=== PATIENT | female | born 1995 | race Asian ===

== ENCOUNTER 2016-10-21 10:36 | Emergency (ER) | payer SELFPAY ==
[2016-10-21 11:07] LABS: Manual Entry Verification JEA0012; UR Preg Internal Control QC Line Present
--- NOTE | 2016-10-21 11:21 | ED ---
GI/ HPI - HPI Summary HPI Summary: 20F presents with menstrual pain for a day. She states she is having cramping feeling in her pelvis for a couple hours so she called an ambulance because she didn't know what to do. She took a couple advil prior to arrival and her pain is minimal now. She denies any n/v/d/c, dysuria, hematuria, flank pain. She states she has been having a normal amount of bleeding. She is on her period at the normal time every 28 days and it lasts 5 days. She has been changing her pad every 3 hours which is her normal. - History of Current Complaint Chief Complaint: EDAbdPain Time Seen by Provider: 10/21/16 10:40 Stated Complaint: ABD PAIN Pain Intensity: 2 - Allergy/Home Medications Allergies/Adverse Reactions: Allergies Allergy/AdvReac Type Severity Reaction Status Date / Time No Known Allergies Allergy Verified 10/21/16 11:00 PMH/Surg Hx/FS Hx/Imm Hx Endocrine/Hematology History: Denies: Hx Anticoagulant Therapy Cardiovascular History: Denies: Hx Hypertension Infectious Disease History: No Infectious Disease History: Denies: Traveled Outside the [place] in Last 30 Days - Family History Known Family History: Negative: Cardiac Disease - Social History Alcohol Use: None Substance Use Type: Reports: None Smoking Status (MU): Never Smoked Tobacco Review of Systems Negative: Fever Negative: Chest Pain Negative: Shortness Of Breath Positive: Abdominal Pain. Negative: Vomiting, Diarrhea, Nausea All Other Systems Reviewed And Are Negative: Yes Physical Exam Triage Information Reviewed: Yes Vital Signs On Initial Exam: Initial Vitals Temp Pulse Resp BP Pulse Ox 98.4 F 62 16 119/89 100 10/21/16 10:58 10/21/16 10:58 10/21/16 10:58 10/21/16 10:58 10/21/16 10:58 Vital Signs Reviewed: Yes Appearance: Positive: Well-Appearing Skin: Positive: Warm, Dry Head/Face: Positive: Normal Head/Face Inspection Eyes: Positive: Normal, Conjunctiva Clear ENT: Positive: Normal ENT inspection, Pharynx normal, TMs normal Respiratory/Lung Sounds: Positive: Clear to Auscultation, Breath Sounds Present Cardiovascular: Positive: Normal, RRR Abdomen Description: Positive: Nontender, Soft Bowel Sounds: Positive: Present Diagnostics - Vital Signs Vital Signs Temp Pulse Resp BP Pulse Ox 10/21/16 10:58 98.4 F 62 16 119/89 100 - Laboratory Lab Results: Lab Results 10/21/16 Range/Units 10:53 Urine Test Negative (Negative) Lab Statement: Any lab studies that have been ordered have been reviewed, and results considered in the medical decision making process. GIGU Course/Dx - Course Course Of Treatment: 20F presents with menstrual pain for a day. She states she is having cramping feeling in her pelvis for a couple hours so she called an ambulance because she didn't know what to do. She took a couple advil prior to arrival and her pain is minimal now. She denies any other symptoms. She is having a normal amount of bleeding. on exam abdomen nontender. urine normal. told to continue advil. patient understands and agrees with plan - Diagnoses Differential Diagnoses - Female: Urinary Tract Infection, Vaginitis, Other - menstrual cramps Provider Diagnoses: Menstrual cramps Discharge - Discharge Plan Condition: Good Disposition: HOME Patient Education Materials: Dysmenorrhea (ED) Referrals: Non Staff,Doctor [Primary Care Provider] - Additional Instructions: Take ibuprofen 600mg every [address] heat on area Go for a walk Follow up with Dominique if want to be placed on control if do not want to get intense periods anymore Return to ED if develop any new or worsening symptoms
[2016-10-21 11:35] VITALS: BP 122/56
== END 2016-10-21 11:36 | disposition home or self-care (01) ==
LOC: ED 10:36
DX: N94.6 Dysmenorrhea, unspecified (principal)
CPT/HCPCS: 81025; 99282

== ENCOUNTER 2016-12-02 11:18 | Emergency (ER) | payer OTHER ==
[2016-12-02] MEDS ORDERED: diPHENhydraMINE PO* 25 MG PO ONE (12:15)
[2016-12-02 13:39] LABS: Albumin 4.3 g/dL (3.2-5.2); BUN/Creatinine Ratio 11.3 (8-20); Calcium 9.7 mg/dL (8.6-10.3); EGFR African American 157.8 (>60); EGFR Non-African American 122.7 (>60); Globulin 3.3 g/dL (2-4); Total Bilirubin 0.6 mg/dL (0.2-1.0); Total Protein 7.6 g/dL (6.4-8.9)
[2016-12-02 13:46] LABS: Potassium 3.5 mmol/L (3.5-5.0)
[2016-12-02 13:50] LABS: Hematocrit 44 % (35-47); Hemoglobin 14.6 g/dl (12.0-16.0); Mean Corpuscular HGB Conc 33 g/dl (31-36); Mean Corpuscular Hemoglobin 30 pg (27-31); Mean Corpuscular Volume 92 fL (80-97); Mean Platelet Volume 7 um3 (7.4-10.4); Red Blood Count 4.81 10^6/ul (4.0-5.4); Red Cell Distribution Width 13 % (10.5-15); White Blood Count 6.1 10^3/ul (3.5-10.8)
--- NOTE | 2016-12-02 14:06 | ED ---
Skin Complaint - HPI Summary HPI Summary: 20F presents with left cellulitis ankle for two weeks. She states that developed the rash and face yesterday and is itchy. She denies any chest pain, SOB, or difficulty swallowing. She denies any abdominal pain, n/v. She denies any fevers. She states that she was on keflex and bactrim and it seemed to be getting better slowly. She was seen at [facility] and was switched to clindamycin and took two doses when she developed the facial rash. She states she took Benadryl last night and had some improvement. on further discussion with dr cooley who saw at [facility] had rash on face before started clindamycin and that was why they switched her to clindamycin. - History of Current Complaint Chief Complaint: EDExtremityLower Time Seen by Provider: 12/02/16 11:51 Stated Complaint: LEFT LEG COMPLAINT Hx Last Menstrual Period: 1 MONTH AGO Pain Intensity: 0 - Allergy/Home Medications Allergies/Adverse Reactions: Allergies Allergy/AdvReac Type Severity Reaction Status Date / Time No Known Allergies Allergy Verified 10/21/16 11:00 PMH/Surg Hx/FS Hx/Imm Hx Endocrine/Hematology History: Denies: Hx Anticoagulant Therapy, Hx Diabetes Cardiovascular History: Denies: Hx Hypertension Infectious Disease History: No Infectious Disease History: Denies: Traveled Outside the [place] in Last 30 Days - Family History Known Family History: Negative: Cardiac Disease, Hypertension, Diabetes - Social History Alcohol Use: None Hx Substance Use: No Substance Use Type: Reports: None Smoking Status (MU): Never Smoked Tobacco Review of Systems Negative: Fever Negative: Chest Pain Negative: Shortness Of Breath Positive: Rash All Other Systems Reviewed And Are Negative: Yes Physical Exam Triage Information Reviewed: Yes Vital Signs On Initial Exam: Initial Vitals Temp Pulse Resp BP Pulse Ox 98.9 F 58 16 97/62 98 12/02/16 11:55 12/02/16 11:55 12/02/16 11:55 12/02/16 11:55 12/02/16 11:55 Vital Signs Reviewed: Yes Appearance: Positive: Well-Appearing Skin: Positive: Warm, Dry, Other - area of cellulitis around entire left ankle with blister like appearanc that extends about 12cm by 8cm that is erythematous and edematous Head/Face: Positive: Normal Head/Face Inspection Eyes: Positive: Normal, Conjunctiva Clear Respiratory/Lung Sounds: Positive: Clear to Auscultation, Breath Sounds Present Cardiovascular: Positive: Normal, RRR Musculoskeletal: Positive: Strength/ROM Intact - left ankle, Edema Left - ankle , Other - good pulses, capillary refill<2 secs, sensation intact Diagnostics - Vital Signs Vital Signs Temp Pulse Resp BP Pulse Ox 12/02/16 11:55 98.9 F 58 16 97/62 98 - Laboratory Lab Results: Lab Results 12/02/16 12/02/16 Range/Units 13:10 13:38 WBC 6.1 (3.5-10.8) 10^3/ul RBC 4.81 (4.0-5.4) 10^6/ul Hgb 14.6 (12.0-16.0) g/dl Hct 44 (35-47) % MCV 92 (80-97) fL MCH 30 (27-31) pg MCHC 33 (31-36) g/dl RDW 13 (10.5-15) % Plt Count 232 (150-450) 10^3/ul MPV 7 L (7.4-10.4) um3 Neut % (Auto) 56.4 (38-83) % Lymph % (Auto) 26.6 (25-47) % [place] % (Auto) 9.9 H (1-9) % Eos % (Auto) 6.3 H (0-6) % Baso % (Auto) 0.8 (0-2) % Absolute Neuts (auto) 3.4 (1.5-7.7) 10^3/ul Absolute Lymphs (auto) 1.6 (1.0-4.8) 10^3/ul Absolute Monos (auto) 0.6 (0-0.8) 10^3/ul Absolute Eos (auto) 0.4 (0-0.6) 10^3/ul Absolute Basos (auto) 0 (0-0.2) 10^3/ul Absolute Nucleated RBC 0.01 10^3/ul Nucleated RBC % 0.1 Sodium 134 (133-145) mmol/L Potassium 3.5 (3.5-5.0) mmol/L Chloride 105 (101-111) mmol/L Carbon Dioxide 19 L (22-32) mmol/L Anion Gap 10 (2-11) mmol/L BUN 7 (6-24) mg/dL Creatinine 0.62 (0.51-0.95) mg/dL Est GFR ( Amer) 157.8 (>60) Est GFR (Non-Af Amer) 122.7 (>60) BUN/Creatinine Ratio 11.3 (8-20) Glucose 83 (70-100) mg/dL Calcium 9.7 (8.6-10.3) mg/dL Total Bilirubin 0.60 (0.2-1.0) mg/dL AST 24 (13-39) U/L ALT 9 (7-52) U/L Alkaline Phosphatase 42 (34-104) U/L Total Protein 7.6 (6.4-8.9) g/dL Albumin 4.3 (3.2-5.2) g/dL Globulin 3.3 (2-4) g/dL Albumin/Globulin Ratio 1.3 (1-3) Result Diagrams: 12/02/16 13:38 12/02/16 13:10 Lab Statement: Any lab studies that have been ordered have been reviewed, and results considered in the medical decision making process. Course/Dx - Course Course Of Treatment: 20F presents with left cellulitis ankle for two weeks. She states that developed the rash and face yesterday and is itchy. She denies any chest pain, SOB, or difficulty swallowing. She denies any abdominal pain, n/v. She denies any fevers. She states that she was on keflex and bactrim and it seemed to be getting better slowly. She was seen at [facility] and was switched to clindamycin and took two doses when she developed the facial rash. She states she took Benadryl last night and had some improvement. on further discussion with dr cooley who saw at [facility] had rash on face before started clindamycin and that was why they switched her to clindamycin. on exam has cellulitis present on left ankle with mild edema present. when comparing to old pictures yesterday that patient had looks same. patient says that feels that is improving. has rash on rash that after giving bendaryl improved. spoke with dr cooley said rash was there before clindamycin so will have continue clindamycin and bendaryl as needed for rash. told to follow up with [facility]. labs wbc normal and lactic normal. gia line on leg and told if passes line to come back. patient understands and agrees with plan. - Differential Diagnoses - Skin Complaint Differential Diagnoses: Abscess, Cellulitis, Contact Dermatitis - Diagnoses Provider Diagnoses: Cellulitis of left ankle - Physician Notifications Discussed Care Of Patient With: dr cooley Time Discussed With Above Provider: 14:21 - rash was there before clindamycin Discharge - Discharge Plan Condition: Good Disposition: HOME Patient Education Materials: Cellulitis (ED) Referrals: [facility] [Primary Care Provider] - Additional Instructions: Continue clindamycin as prescribed Follow up with Dominique within 3 days Warm soaks on area Return to ED if redness spread over line, fever, or develop any new or worsening symptoms
[2016-12-02 14:49] VITALS: BP 90/60
== END 2016-12-02 14:48 | disposition home or self-care (01) ==
LOC: MERGE 11:18 → ED 11:18
DX: L03.116 Cellulitis of left lower limb (principal)
CPT/HCPCS: 36415; 80053; 83605; 85025; 99282; A9270-GY